=== PATIENT | female | born 1965 | race African-American/Black ===

== ENCOUNTER 2016-11-05 10:59 | Emergency (ER) | payer OTHER ==
[~2016-11-05] VITALS: Ht 160 cm; Wt 76.7 kg
[~2016-11-05 10:59] MED LIST: ACETAMINOPHEN325 MG; ADVIL200 M1 PO; AMITRIPTYLINE PO; AMLODIPINE BESYL5 MG PO; ASPIRIN325; ATENOLOL 100MG100 MG PO; ATENOLOL 50MG T50 MG; AZOR 10-20 MG1 EACH; CARBATROL200 MG PO; CIPRO500 MG; COLACE 100 MG100 MG; DYAZIDE 37.5-21 EACH PO; FAMOTIDINE20 MG; LIPITOR 10 MG10 M1; LIPITOR 10 MG10 M1 PO; NEURONTIN100 MG; NEURONTIN100 MG PO; PROTONIX40 M1 PO
[2016-11-05] MEDS ORDERED: AMITRIPTYLINE H25 M2 PO (11:14)
[2016-11-05] MEDS ORDERED: AMLODIPINE BESYL5 MG PO (11:18)
[2016-11-05] MEDS ORDERED: NAPROSYN500 MG PO (11:18)
[2016-11-05] MEDS ORDERED: COREG25 MG PO (11:19)
[2016-11-05] MEDS ORDERED: MAXZIDE-25 MG1 EACH PO (11:19)
[2016-11-05] MEDS ORDERED: PROVENTIL HFA6.7 G1 INH (12:25)
[2016-11-05] MEDS ORDERED: PREDNISONE 20 M20 MG PO (12:25)
== END 2016-11-05 12:41 | disposition home or self-care (01) ==
LOC: ER 10:59
DX: J06.9 Acute upper respiratory infection, unspecified (principal); R09.81 Nasal congestion; I25.2 Old myocardial infarction; Z98.890 Other specified postprocedural states; Z90.711 Acquired absence of uterus with remaining cervical stump; I10 Essential (primary) hypertension; G43.809 Other migraine, not intractable, without status migrainosus; Z90.49 Acquired absence of other specified parts of digestive tract; G62.9 Polyneuropathy, unspecified

== ENCOUNTER 2017-02-17 23:18 | Emergency (ER) | payer OTHER ==
[~2017-02-17] VITALS: Ht 162.6 cm; Wt 72.6 kg
[~2017-02-17 23:18] MED LIST changes: +AMITRIPTYLINE H25 M2 PO; +COREG25 MG PO; +MAXZIDE-25 MG1 EACH PO; +NAPROSYN500 MG PO; +PREDNISONE 20 M20 MG PO; +PROVENTIL HFA6.7 G1 INH
[2017-02-18] MEDS ORDERED: PANTOPRAZOLE SO40 M1 PO (00:51)
== END 2017-02-18 00:58 | disposition home or self-care (01) ==
LOC: ER 23:18
DX: S09.8XXA Other specified injuries of head, initial encounter (principal); I25.2 Old myocardial infarction; I10 Essential (primary) hypertension; W18.39XA Other fall on same level, initial encounter; Y93.89 Activity, other specified; Y92.89 Other specified places as the place of occurrence of the external cause; Y99.8 Other external cause status

== ENCOUNTER 2017-03-14 23:51 | Emergency (ER) | payer OTHER ==
[~2017-03-14] VITALS: Ht 162.6 cm; Wt 72.6 kg
[~2017-03-14 23:51] MED LIST changes: +PANTOPRAZOLE SO40 M1 PO
[2017-03-15 00:14] LABS: ABSOLUTE NEUTROPHILS 2.5 thou/uL (1.4-8.2); BASOPHILS 0.5 % (0.0-2.0); EOSINOPHILS 3.5 % (0.0-3.0); HEMATOCRIT 36.6 % (37.0-47.0); HEMOGLOBIN 12.6 gm/dL (12.0-15.0); LYMPHOCYTES 42.5 % (24.0-44.0); MCH 30.6 pg (26.0-34.0); MCHC 34.5 g/dL (28.0-37.0); MCV 88.9 fL (80.0-100.0); MONOCYTES 7.9 % (1.0-8.0); PLATELET COUNT 204 thou/uL (150-400); POLYS 45.6 % (36.0-66.0); RBC 4.12 mil/uL (4.20-5.00); RDW 13.7 % (10.5-14.5); WBC 5.5 thou/uL (4.0-11.0)
[2017-03-15 00:20] LABS: MANUAL DIFF NO
[2017-03-15 00:22] LABS: ANION GAP 8 mmol/L (7-16); BUN 12 mg/dL (7-18); CALCIUM 8.7 mg/dL (8.5-10.1); CHLORIDE 110 mmol/L (98-107); CO2 27 mmol/L (21-32); CREATININE 0.9 mg/dL (0.6-1.0); POTASSIUM 3.9 mmol/L (3.5-5.1); SODIUM 145 mmol/L (136-145)
[2017-03-15 00:28] LABS: ALBUMIN 4.2 g/dL (3.4-5.0); ALKALINE PHOSPHATASE 101 U/L (46-116); DIRECT BILIRUBIN < 0.1 mg/dL (<0.1-0.3); SGOT 22 U/L (15-37); SGPT 38 U/L (30-65); TOTAL BILIRUBIN 0.3 mg/dL (<0.1-1.0); TOTAL PROTEIN 7.7 g/dL (6.4-8.2)
[2017-03-15 00:36] LABS: GLUCOSE 97 mg/dL (74-106)
[2017-03-15 00:50] LABS: URINE BILIRUBIN NEGATIVE (Negative); URINE BLOOD 3+ (Negative); URINE COLOR YELLOW; URINE GLUCOSE-RANDOM* NEGATIVE (Negative); URINE KETONES NEGATIVE (Negative); URINE NITRITE NEGATIVE (Negative); URINE PROTEIN (DIPSTICK) 2+ (Negative); URINE SPECIFIC GRAVITY >= 1.030 (1.003-1.035)
[2017-03-15 01:01] LABS: SQUAMOUS >10 Many /LPF (0-3); URINE RBC >20 Many /HPF (0-2)
[2017-03-15 01:02] LABS: BACTERIA 1-9 Few /HPF (None Seen); CASTS None Seen /LPF (None Seen); CRYSTALS None Seen /LPF (None Seen); URINE WBC 6-15 Few /HPF (0-5)
== END 2017-03-15 02:01 | disposition home or self-care (01) ==
LOC: ER 23:51
PROVIDERS: Emergency Medicine
DX: R10.84 Generalized abdominal pain (principal); R19.7 Diarrhea, unspecified

== ENCOUNTER 2017-06-14 19:49 | Emergency (ER) | payer OTHER ==
[~2017-06-14] VITALS: Ht 160 cm; Wt 70.3 kg
--- NOTE | ~2017-06-14 | EKG ---
[address] [place] [address] ELECTROCARDIOGRAM REPORT Name: YAZ WORTHYANOR [facility] [id number] Admission: 06/14/17 Attend Phys: Discharge: 06/14/17 Date of : 61 Report #: [id number] THIS REPORT FOR: //name// [facility] ED Test Date: 2017-06-14 Test Time: 20:03:32 Pat Name: RAFY WORTHY Department: Room: Gender: F Front Office Supervisor: [facility] : 1965 Requested By: Ofelia Coppola Order Number: [id number] MD: George Winkler Measurements Intervals [place] Rate: 66 P: 26 OK: 153 QRS: -10 QRSD: 86 T: -10 QT: 408 QTc: 428 Interpretive Statements Sinus rhythm Borderline T abnormalities, inferior leads Baseline wander in lead(s) V2 Compared to ECG 12/30/2013 16:07:07 No significant change was found Electronically Signed On 06-17-2017 13:28:29 CDT by George Winkler [email or web address] <ELECTRONICALLY SIGNED> By: George Winkler MD, [facility] 06/17/17 1328 02 02 George Winkler MD, [facility] /EPI
[2017-06-14] MEDS ORDERED: LIPITOR 20 MG T20 M1 PO (20:17)
[2017-06-14 20:38] LABS: ABSOLUTE NEUTROPHILS 2.8 thou/uL (1.4-8.2); BASOPHILS 0.5 % (0.0-2.0); EOSINOPHILS 1.9 % (0.0-3.0); HEMATOCRIT 39.2 % (37.0-47.0); HEMOGLOBIN 13.2 gm/dL (12.0-15.0); LYMPHOCYTES 38.4 % (24.0-44.0); MANUAL DIFF NO; MCH 29.5 pg (26.0-34.0); MCHC 33.6 g/dL (28.0-37.0); MCV 87.6 fL (80.0-100.0); MONOCYTES 8.4 % (1.0-8.0); PLATELET COUNT 215 thou/uL (150-400); POLYS 50.8 % (36.0-66.0); RBC 4.47 mil/uL (4.20-5.00); RDW 13.6 % (10.5-14.5); WBC 5.5 thou/uL (4.0-11.0)
[2017-06-14 20:43] LABS: CALCIUM 9.3 mg/dL (8.5-10.1); POTASSIUM 3.8 mmol/L (3.5-5.1)
[2017-06-14 20:49] LABS: ALBUMIN 4.3 g/dL (3.4-5.0); TOTAL BILIRUBIN 0.3 mg/dL (<0.1-1.0); TOTAL PROTEIN 8.3 g/dL (6.4-8.2)
[2017-06-14 21:31] LABS: URINE BILIRUBIN NEGATIVE (Negative); URINE BLOOD NEGATIVE (Negative); URINE COLOR YELLOW; URINE GLUCOSE-RANDOM* NEGATIVE (Negative); URINE KETONES NEGATIVE (Negative); URINE NITRITE NEGATIVE (Negative); URINE PROTEIN (DIPSTICK) NEGATIVE (Negative); URINE SPECIFIC GRAVITY >= 1.030 (1.003-1.035); URINE UROBILINOGEN 0.2 E.U./dl (0.2-1.0)
[2017-06-14] MEDS ORDERED: FLAGYL500 MG PO (23:36)
[2017-06-14] MEDS ORDERED: PHENERGAN 25 MG25 M1 PO (23:36)
[2017-06-14] MEDS ORDERED: HYDROCODONE-AP1 EAC6 PO (23:36)
[2017-06-14] MEDS ORDERED: CIPRO500 MG PO (23:36)
== END 2017-06-14 23:57 | disposition home or self-care (01) ==
LOC: ER 19:49
PROVIDERS: Physician Assistant
DX: K57.92 Diverticulitis of intestine, part unspecified, without perforation or abscess without bleeding (principal); R19.7 Diarrhea, unspecified; I10 Essential (primary) hypertension; G43.909 Migraine, unspecified, not intractable, without status migrainosus; Z90.710 Acquired absence of both cervix and uterus; Z98.890 Other specified postprocedural states

== ENCOUNTER 2017-07-14 13:36 | Emergency (ER) | payer OTHER ==
[~2017-07-14] VITALS: Ht 160 cm; Wt 72.6 kg
[~2017-07-14 13:36] MED LIST changes: +CIPRO500 MG PO; +FLAGYL500 MG PO; +HYDROCODONE-AP1 EAC6 PO; +LIPITOR 20 MG T20 M1 PO; +PHENERGAN 25 MG25 M1 PO
[2017-07-14 13:57] LABS: URINE BILIRUBIN NEGATIVE (Negative); URINE BLOOD 2+ (Negative); URINE COLOR YELLOW; URINE GLUCOSE-RANDOM* NEGATIVE (Negative); URINE KETONES NEGATIVE (Negative); URINE NITRITE NEGATIVE (Negative); URINE PROTEIN (DIPSTICK) NEGATIVE (Negative); URINE UROBILINOGEN 0.2 E.U./dl (0.2-1.0)
[2017-07-14 14:06] LABS: BACTERIA 1-9 Few /HPF (None Seen); CASTS None Seen /LPF (None Seen); CRYSTALS None Seen /LPF (None Seen); SQUAMOUS 0-3 Few /LPF (0-3); URINE RBC 3-10 Few /HPF (0-2); URINE WBC >25 Many /HPF (0-5)
[2017-07-14] MEDS ORDERED: PHENAZOPYRIDIN200 M2 PO (14:16)
[2017-07-14] MEDS ORDERED: KEFLEX500 MG PO (14:16)
== END 2017-07-14 14:39 | disposition home or self-care (01) ==
LOC: ER 13:36
PROVIDERS: Physician Assistant
DX: N39.0 Urinary tract infection, site not specified (principal); I25.2 Old myocardial infarction; I10 Essential (primary) hypertension; G43.909 Migraine, unspecified, not intractable, without status migrainosus; G62.9 Polyneuropathy, unspecified; Z90.711 Acquired absence of uterus with remaining cervical stump; Z90.49 Acquired absence of other specified parts of digestive tract; Z86.711 Personal history of pulmonary embolism; Z98.890 Other specified postprocedural states

== ENCOUNTER 2017-08-25 11:13 | Emergency (ER) | payer OTHER ==
[~2017-08-25] VITALS: Ht 160 cm; Wt 68.0 kg
[~2017-08-25 11:13] MED LIST changes: +KEFLEX500 MG PO; +PHENAZOPYRIDIN200 M2 PO
[2017-08-25] MEDS ORDERED: CARVEDILOL12.5 MG PO (11:34)
[2017-08-25] MEDS ORDERED: TESSALON PERLE100 MG PO (12:13)
[2017-08-25] MEDS ORDERED: FLONASE 0.05%50 MCG NASAL (12:13)
== END 2017-08-25 12:30 | disposition home or self-care (01) ==
LOC: ER 11:13
DX: J06.9 Acute upper respiratory infection, unspecified (principal); M79.1 Myalgia; I10 Essential (primary) hypertension; G62.9 Polyneuropathy, unspecified; Z98.890 Other specified postprocedural states